=== PATIENT | female | born 1990 | race Caucasian/White ===

== ENCOUNTER 2019-02-09 20:16 | Inpatient (IN) | payer MEDICAID ==
[2019-02-09 22:59] LABS: ADD MAN DIFF? NO
[2019-02-09 23:00] LABS: BASOPHIL # 0.1 10^3/ul (0.0-0.1); EOSINOPHILS # 0.1 10^3/ul (0.0-0.5); EOSINOPHILS % 2.6 % (0.0-7.0); HEMATOCRIT 40.6 % (37.0-47.0); LYMPHOCYTES # 1.9 10^3/ul (0.8-2.9); LYMPHOCYTES % 37.6 % (15.0-51.0); MEAN CORPUSCULAR HEMOGLOBIN 32.3 pg (29.0-33.0); MEAN CORPUSCULAR HGB CONC 34.5 g/dl (32.0-37.0); MEAN CORPUSCULAR VOLUME 93.8 fl (82.0-101.0); MEAN PLATELET VOLUME 9.2 fl (7.4-10.4); MONOCYTE # 0.4 10^3/ul (0.3-0.9); MONOCYTES % 7.6 % (0.0-11.0); NEUTROPHIL # 2.5 10^3/ul (1.6-7.5); NEUTROPHILS % 50.8 % (39.0-77.0); PLATELET COUNT 177 10^3/UL (140-415); RED BLOOD COUNT 4.33 10^6/ul (4.20-5.40); RED CELL DISTRIBUTION WIDTH 13.8 % (11.5-14.5)
[2019-02-09] MEDS: SOD CHLORIDE 0.9% 1,000 ML IV (23:03)
[2019-02-09] MEDS: LORAZEPAM 2 MG INJ IV (23:03)
[2019-02-09] MEDS: ONDANSETRON 4 MG INJ IV (23:03)
[2019-02-09 23:04] LABS: ADD UMIC YES; UR ASCORBIC ACID NEGATIVE (NEGATIVE); UR BACTERIA FEW /HPF (NONE SEEN); UR BILIRUBIN (Dip) NEGATIVE (NEGATIVE); UR BLOOD (Dip) 2+ mg/dL (NEGATIVE); UR CLARITY SLIGHTLY CLOUDY (CLEAR); UR COLOR STRAW (YELLOW); UR GLUCOSE (Dip) NEGATIVE (NEGATIVE); UR KETONES (Dip) NEGATIVE (NEGATIVE); UR LEUKOCYTE ESTERASE (Dip) NEGATIVE Leu/ul (NEGATIVE); UR NITRITE (Dip) NEGATIVE (NEGATIVE); UR RBC 2 /HPF (0-5); UR SPECIFIC GRAVITY (Dip) 1.006 (1.003-1.030); UR TOTAL PROTEIN (Dip) NEGATIVE (NEGATIVE); UR UROBILINOGEN (Dip) NEGATIVE (NEGATIVE); UR WBC 1 /HPF (0-5)
[2019-02-09 23:23] LABS: ALANINE AMINOTRANSFERASE 26 IU/L (13-69); ALBUMIN 4.7 g/dl (3.3-4.9); ALBUMIN/GLOBULIN RATIO 1.56; ALKALINE PHOSPHATASE 70 IU/L (42-121); ANION GAP 20 (5-13); ASPARTATE AMINO TRANSFERASE 73 IU/L (15-46); BILIRUBIN,INDIRECT 0.4 mg/dl (0-1.1); BILIRUBIN,TOTAL 0.4 mg/dl (0.2-1.3); BLOOD UREA NITROGEN 9 mg/dl (7-20); CALCIUM 8.8 mg/dl (8.4-10.2); CARBON DIOXIDE 21 mmol/L (21-31); CHLORIDE 100 mmol/L (97-110); CREATININE 0.54 mg/dl (0.44-1.00); Estimated GFR > 60 mL/min (>60); GLUCOSE 204 mg/dl (70-220); LIPASE 97 U/L (23-300); POTASSIUM 3.7 mmol/L (3.5-5.1); SODIUM 141 mmol/L (135-144); TOTAL PROTEIN 7.7 g/dl (6.1-8.1)
[2019-02-10] MEDS: LORAZEPAM 2 MG INJ IV (00:41)
[2019-02-10] MEDS: SOD CHLORIDE 0.9% 1,000 ML IV (00:41)
[2019-02-10] MEDS ORDERED: ONDANSETRON 4 MG INJ IV (01:00)
[2019-02-10] MEDS ORDERED: BISACODYL (EC) 5 MG TAB PO (01:00)
[2019-02-10] MEDS ORDERED: NACL 0.9% 3 ML SYG IV (01:00)
[2019-02-10] MEDS ORDERED: LORAZEPAM 2 MG INJ IV (01:00)
[2019-02-10] MEDS ORDERED: ACETAMINOPHEN 325 MG TAB PO (01:00)
[2019-02-10] MEDS ORDERED: DOCUSATE SODIUM 100 MG CAP PO (01:00)
[2019-02-10 01:22] LABS: AMPHETAMINE/METHAMPHETAMINE Negative (NEGATIVE); BARBITURATES Negative (NEGATIVE); BENZODIAZEPINES Positive (NEGATIVE); CANNABINOIDS Negative (NEGATIVE); COCAINE Negative (NEGATIVE); OPIATES Negative (NEGATIVE)
[2019-02-10] MEDS: MULTIVITAMINS 10 ML, THIAMINE 100 MG, FOLIC ACID 1 MG in SOD CHLORIDE 0.9% 1,000 ML IVPB (01:40)
[2019-02-10] MEDS: CHLORDIAZEPOXIDE 25 MG CAP PO ×2 (03:18→09:31)
[2019-02-10] MEDS: THIAMINE 100 MG TAB PO (09:31)
[2019-02-10] MEDS: FOLIC ACID 1 MG TAB PO (09:31)
[2019-02-10] MEDS: MULTIVITAMINS THERAPEUTIC TAB PO (09:31)
[2019-02-10] MEDS: VENLAFAXINE 37.5 MG TAB PO ×2 (10:59→20:32)
[2019-02-10] MEDS: CYANOCOBALAMIN 100 MCG TAB PO (10:59)
[2019-02-10] MEDS ORDERED: GABAPENTIN 100 MG CAP PO (17:30)
[2019-02-10] MEDS ORDERED: GUAIFENESIN/DM 5ML CUP PO (20:34)
[2019-02-10] MEDS ORDERED: VENLAFAXINE 37.5 MG TAB PO (21:00)
[2019-02-10] MEDS: GABAPENTIN 100 MG CAP PO (21:48)
[2019-02-10] MEDS: morphine 2 MG INJ IV (21:49)
[2019-02-11] MEDS: LORAZEPAM 2 MG INJ IV ×2 (00:02→10:15)
[2019-02-11] MEDS ORDERED: CHLORDIAZEPOXIDE 25 MG CAP PO (01:00)
[2019-02-11 05:20] LABS: ADD MAN DIFF? NO
[2019-02-11 05:27] LABS: BASOPHILS % 0.2 % (0.0-2.0); EOSINOPHILS # 0.2 10^3/ul (0.0-0.5); EOSINOPHILS % 5.1 % (0.0-7.0); HEMATOCRIT 36.4 % (37.0-47.0); HEMOGLOBIN 12.4 g/dl (12.0-16.0); LYMPHOCYTES # 1.4 10^3/ul (0.8-2.9); LYMPHOCYTES % 32.8 % (15.0-51.0); MEAN CORPUSCULAR HEMOGLOBIN 32.2 pg (29.0-33.0); MEAN CORPUSCULAR HGB CONC 34.1 g/dl (32.0-37.0); MEAN CORPUSCULAR VOLUME 94.5 fl (82.0-101.0); MEAN PLATELET VOLUME 9.3 fl (7.4-10.4); MONOCYTE # 0.3 10^3/ul (0.3-0.9); MONOCYTES % 6.8 % (0.0-11.0); NEUTROPHIL # 2.3 10^3/ul (1.6-7.5); NEUTROPHILS % 54.9 % (39.0-77.0); PLATELET COUNT 111 10^3/UL (140-415); RED BLOOD COUNT 3.85 10^6/ul (4.20-5.40); RED CELL DISTRIBUTION WIDTH 13.2 % (11.5-14.5)
[2019-02-11 05:27] LABS: WHITE BLOOD COUNT 4.1 10^3/ul (4.8-10.8)
[2019-02-11 05:48] LABS: ALANINE AMINOTRANSFERASE 26 IU/L (13-69); ALBUMIN 3.7 g/dl (3.3-4.9); ALBUMIN/GLOBULIN RATIO 1.42; ALKALINE PHOSPHATASE 50 IU/L (42-121); ANION GAP 6 (5-13); ASPARTATE AMINO TRANSFERASE 52 IU/L (15-46); BILIRUBIN,INDIRECT 0.9 mg/dl (0-1.1); BILIRUBIN,TOTAL 0.9 mg/dl (0.2-1.3); BLOOD UREA NITROGEN 5 mg/dl (7-20); CALCIUM 8.8 mg/dl (8.4-10.2); CARBON DIOXIDE 28 mmol/L (21-31); CHLORIDE 103 mmol/L (97-110); CREATININE 0.46 mg/dl (0.44-1.00); Estimated GFR > 60 mL/min (>60); GLUCOSE 93 mg/dl (70-220); POTASSIUM 3.6 mmol/L (3.5-5.1); SODIUM 137 mmol/L (135-144); TOTAL PROTEIN 6.3 g/dl (6.1-8.1)
[2019-02-11] MEDS: VENLAFAXINE 37.5 MG TAB PO (10:14)
[2019-02-11] MEDS: FOLIC ACID 1 MG TAB PO (10:14)
[2019-02-11] MEDS: GABAPENTIN 100 MG CAP PO ×2 (10:14→12:04)
[2019-02-11] MEDS: CYANOCOBALAMIN 100 MCG TAB PO (10:14)
[2019-02-11] MEDS: THIAMINE 100 MG TAB PO (10:14)
[2019-02-11] MEDS: MULTIVITAMINS THERAPEUTIC TAB PO (10:14)
[2019-02-11] MEDS: CHLORDIAZEPOXIDE 25 MG CAP PO (10:15)
[2019-02-12] MEDS ORDERED: CHLORDIAZEPOXIDE 25 MG CAP PO (01:00)
[2019-02-13] MEDS ORDERED: CHLORDIAZEPOXIDE 5 MG CAP PO (01:00)
== END 2019-02-11 16:55 | disposition home or self-care (01) | DRG 897 ==
LOC: E/R 20:16 → TEL 02-10 00:31 → 2NE 02-10 23:48
DX: F10.239 Alcohol dependence with withdrawal, unspecified (principal); F33.2 Major depressive disorder, recurrent severe without psychotic features; F10.229 Alcohol dependence with intoxication, unspecified; Y90.8 Blood alcohol level of 240 mg/100 ml or more; F41.9 Anxiety disorder, unspecified
CPT/HCPCS: 36415; 80053; 80307; 81001; 81025; 83690; 85025; 96374; 96375; 99285-25

== ENCOUNTER 2019-03-11 21:42 | Emergency (ER) | payer MEDICAID ==
[2019-03-11] MEDS: LORAZEPAM 2 MG INJ IV (23:13)
[2019-03-11] MEDS: SOD CHLORIDE 0.9% 1,000 ML IV (23:14)
[2019-03-11 23:15] LABS: ADD MAN DIFF? NO
[2019-03-11 23:18] LABS: BASOPHIL # 0.1 10^3/ul (0.0-0.1); BASOPHILS % 1.3 % (0.0-2.0); EOSINOPHILS # 0.3 10^3/ul (0.0-0.5); EOSINOPHILS % 3.4 % (0.0-7.0); HEMATOCRIT 43.9 % (37.0-47.0); HEMOGLOBIN 14.7 g/dl (12.0-16.0); LYMPHOCYTES % 22.8 % (15.0-51.0); MEAN CORPUSCULAR HEMOGLOBIN 31.6 pg (29.0-33.0); MEAN CORPUSCULAR HGB CONC 33.5 g/dl (32.0-37.0); MEAN CORPUSCULAR VOLUME 94.4 fl (82.0-101.0); MEAN PLATELET VOLUME 8.1 fl (7.4-10.4); MONOCYTE # 0.5 10^3/ul (0.3-0.9); MONOCYTES % 6.1 % (0.0-11.0); NEUTROPHIL # 5.7 10^3/ul (1.6-7.5); NEUTROPHILS % 66.2 % (39.0-77.0); PLATELET COUNT 404 10^3/UL (140-415); RED BLOOD COUNT 4.65 10^6/ul (4.20-5.40); RED CELL DISTRIBUTION WIDTH 13.2 % (11.5-14.5)
[2019-03-11 23:18] LABS: WHITE BLOOD COUNT 8.6 10^3/ul (4.8-10.8)
[2019-03-11 23:37] LABS: ALANINE AMINOTRANSFERASE 19 IU/L (13-69); ALBUMIN 4.8 g/dl (3.3-4.9); ALBUMIN/GLOBULIN RATIO 1.23; ALKALINE PHOSPHATASE 54 IU/L (42-121); ANION GAP 17 (5-13); ASPARTATE AMINO TRANSFERASE 31 IU/L (15-46); BILIRUBIN,INDIRECT 0.3 mg/dl (0-1.1); BILIRUBIN,TOTAL 0.3 mg/dl (0.2-1.3); BLOOD UREA NITROGEN 8 mg/dl (7-20); CALCIUM 9.6 mg/dl (8.4-10.2); CARBON DIOXIDE 25 mmol/L (21-31); CHLORIDE 103 mmol/L (97-110); CREATININE 0.67 mg/dl (0.44-1.00); Estimated GFR > 60 mL/min (>60); GLUCOSE 144 mg/dl (70-220); LIPASE 65 U/L (23-300); POTASSIUM 4.4 mmol/L (3.5-5.1); SODIUM 145 mmol/L (135-144); TOTAL PROTEIN 8.7 g/dl (6.1-8.1)
[2019-03-11 23:45] LABS: INR 1.02; PROTIME 13.5 Sec (11.9-14.9); PT RATIO 1.1
[2019-03-11 23:46] LABS: PARTIAL THROMBOPLASTIN TIME 28.2 Sec (23.0-35.0)
[2019-03-12 00:17] LABS: ADD UMIC YES; UR AMORPHOUS CRYSTAL FEW /HPF (NONE SEEN); UR ASCORBIC ACID NEGATIVE (NEGATIVE); UR BACTERIA MANY /HPF (NONE SEEN); UR BILIRUBIN (Dip) NEGATIVE (NEGATIVE); UR BLOOD (Dip) 2+ mg/dL (NEGATIVE); UR CLARITY CLOUDY (CLEAR); UR COLOR YELLOW (YELLOW); UR GLUCOSE (Dip) NEGATIVE (NEGATIVE); UR KETONES (Dip) NEGATIVE (NEGATIVE); UR LEUKOCYTE ESTERASE (Dip) TRACE Leu/ul (NEGATIVE); UR MUCUS FEW /HPF (NONE SEEN); UR NITRITE (Dip) NEGATIVE (NEGATIVE); UR RBC 27 /HPF (0-5); UR SPECIFIC GRAVITY (Dip) 1.018 (1.003-1.030); UR SQUAMOUS EPITHELIAL CELL FEW /HPF (FEW); UR TOTAL PROTEIN (Dip) 1+ mg/dl (NEGATIVE); UR UROBILINOGEN (Dip) NEGATIVE (NEGATIVE); UR WBC 7 /HPF (0-5)
[2019-03-12] MEDS: LORAZEPAM 2 MG INJ IV (00:29)
== END 2019-03-12 00:47 | disposition home or self-care (01) ==
LOC: E/R 03-12 00:47
DX: F10.230 Alcohol dependence with withdrawal, uncomplicated (principal); J45.909 Unspecified asthma, uncomplicated; R40.2142 Coma scale, eyes open, spontaneous, at arrival to emergency department; R40.2362 Coma scale, best motor response, obeys commands, at arrival to emergency department; R40.2252 Coma scale, best verbal response, oriented, at arrival to emergency department
CPT/HCPCS: 36415; 80053; 81001; 81025; 83690; 85025; 85610; 85730; 96374; 96376; 99284-25